=== PATIENT | female | born 1955 | race Native Hawaiian/Other Pacific Islander ===

== ENCOUNTER 2017-08-17 09:25 | Day surgery (SDC) | payer OTHER ==
[2017-08-17 09:57] VITALS: BMI 36.1
[2017-08-17] MEDS ORDERED: Midazolam 2 MG/2 ML VIAL ONE (11:39)
[2017-08-17] MEDS ORDERED: Propofol 10 mg/ml Inj (20 ML) ONE (11:39)
[2017-08-17] MEDS ORDERED: Lactated Ringer's 1,000 ML IV ONE ×2 (11:41)
[2017-08-17 12:30] VITALS: TEMP 98.6
[2017-08-17 13:22] VITALS: BP 108/66; PULSE 98; RESP 20; O2SAT 100
== END 2017-08-17 13:24 | disposition home or self-care (01) ==
LOC: C.ENDO 09:25
PROVIDERS: ATTEND Internal Medicine
DX: Z12.11 Encounter for screening for malignant neoplasm of colon (principal); K57.30 Diverticulosis of large intestine without perforation or abscess without bleeding; K64.9 Unspecified hemorrhoids; I10 Essential (primary) hypertension; E11.9 Type 2 diabetes mellitus without complications
CPT/HCPCS: 45378; 82948; J7120